=== PATIENT | female | born 1975 | race Caucasian/White ===

== ENCOUNTER 2023-11-23 16:49 | Emergency (ER) | payer BC ==
[~2023-11-23] VITALS: Ht 167.6 cm; Wt 109.1 kg
[2023-11-23] MEDS ORDERED: Rabies Immune Globulin PF 300 UNITS/2 ML VIAL IM ONE (17:15)
[2023-11-23 18:59] VITALS: BP 129/87
== END 2023-11-23 19:06 | disposition home or self-care (01) ==
LOC: ED 16:49
DX: Z20.3 Contact with and (suspected) exposure to rabies (principal); Z23 Encounter for immunization